=== PATIENT | male | born 1940 | race Caucasian/White ===

== ENCOUNTER 2017-06-01 10:48 | Outpatient (CLI) | payer MEDICARE, BC ==
[~2017-06-01] VITALS: Ht 170.2 cm; Wt 76.4 kg
--- NOTE | ~2017-06-01 | HEMODYNAMI ---
PATIENT:NORRIS GARCIA MEDICAL RECORD: [id number] : 44 LOCATION:[facility] ADMISSION DATE: 06/01/17 Generatedon:06/01/201713:38 Patient name: NORRIS GARCIA Patient #: [id number] SSN: DO B: 1940 Date of study: 06/01/2017 Page: Of Hemodynamic Procedure Report Patient Data Patient Demographics Procedure consent was obtained First Name: NORRIS Gender: Male Last Name: RADHA : 1940 Middle Initial: NOLA Age: 76 year(s) Patient #: [id number] Race: Unknown Additional ID: [id number] Contact details [address]: [address] [place] [address] State: [place] City: [place] Zip code: [address] Past Medical History Allergies Allergen Reaction Date Comments Reported Other allergy 06/01/2017 LISINOPRIL, PCN, WARFARIN Admission Admission Data Admission Date: 06/01/2017 Admission Time: 10:48 Height (in.): 5.7 BSA: 0.31 (m2) Height (cm.): 14.48 BMI: 3635.45 (kg/m2) Weight (lbs.): 168 Weight (kg.): 76.2 Lab Results Lab Result Date: 06/01/2017 Lab Result Time: 0:00 Biochemistry Name Units Result Min Max BUN mg/dl 25 --(----)-* 7 18 Creatinine mg/dl 1.6 --(----)-* 0.6 1.3 CBC Name Units Result Min Max Hemoglobin g/dl 16.6 --(---*)-- 13.5 17.5 Procedure Procedure Types Cath Procedure Diagnostic Procedure LHC LHC w/Coronaries w/Grafts Procedure Description Procedure Date Procedure Date: 06/01/2017 Procedure Start Time: 13:21 Procedure End Time: 13:37 Procedure Staff Name Function Johnny Herndon MD Performing Physician Lizet Vernon RT Monitor Bijal Thomason RT Scrub Buffie Mcwilliams RN Nurse Procedure Data Cath Procedure Fluoroscopy Diagnostic fluoroscopy Total fluoroscopy Time: 2.1 time: 2.1 min min Diagnostic fluoroscopy Total fluoroscopy dose: 485 dose: 485 mGy mGy Contrast Material Contrast Material Type Amount (ml) Isovue 300 75 Entry Location Entry Primary Successful Side Size Upsize Upsize Entry Closure Succes sful Closure Location (Fr) 1 (Fr) 2 (Fr) Remarks Device Remarks Femoral Right 5 Fr Exoseal artery Estimated blood loss: 5 ml Diagnostic catheters Device Type Used For End Catheter Placement MULTIPACK JL 4.0 5Fr Procedure catheter MULTIPACK 3DRC 5Fr Procedure catheter MULTIPACK Pigtail 5 Fr Procedure catheter Procedure Complications No complications Procedure Medications Medication Administration Route Dosage Oxygen NC 2 l/min Lidocaine 2% added to field 20 Heparin Flush Bag added to field 2 bags (1000units/500ml NS) 0.9% NaCl I.V. 100 ml/hr Fentanyl I.V. 50 mcg Fentanyl I.V. 50 mcg Hemodynamics Rest BSA: 0.31 (m2) HGB: 16.6 (g/dl) O2 Consumption: Estimated: 36.58 (ml/min) O2 Con sumption indexed: Estimated:118 (ml/min/m) Heart Rate: 78 (bpm) Pressure Samples Time Site Value (mmHg) Purpose Heart Use Rate(bpm) 13:29 LV 107/30,33 Snapshot 79 13:29 AO 107/72(87) Pullback 79 13:29 LV 102/-6,26 Pullback 79 Gradients Valve Time Site 1 Site 2 Mean SEP/DFP Peak To Heart Use (mmHg) (sec/min) Peak Rate (mmHg) (bpm) Aortic 13:29 LV AO 0 19 0 79 102/-6,26 107/72(87) Calculations Valve P-P Mean Valve Index Valve Source Name Gradient Area Flow (cm2) Aortic 0 0 0 0 Snapshots Pre Cath Intra NCS Post Cath Vital Signs Time Heart Resp SPO2 etCO2 NIBP (mmHg) Rhythm Pain Sedation Rate (ipm) (%) (mmHg) Status Level (bpm) 13:16:46 79 23 98 17.3 124/85(109) NSR 0 (11) 10(A) , No pain 13:20:48 73 26 96 6.7 133/100(113) NSR 0 (11) 10(A) , No pain 13:24:54 81 18 95 18 122/91(108) NSR 0 (11) 10(A) , No pain 13:28:55 86 15 97 15 130/90(107) NSR 0 (11) 10(A) , No pain 13:32:57 76 16 99 9.8 147/95(108) NSR 0 (11) 10(A) , No pain 13:37:54 79 13 90 0 123/94(110) NSR 0 (11) 10(A) , No pain Medications Time Medication Route Dose Verified Delivered Reason Notes Effe ctiveness by by 13:18:25 Oxygen NC 2 Johnny Buffie used for l/min [facility]. Yordan Mcwilliams RN procedure MD 13:18:35 Lidocaine 2% added 20ml Johnny Johnny for local to vial [facility] anesthetic field MD KAUFMAN 13:18:54 Heparin Flush added 2 Johnny Johnny used for Bag to bags [facility] procedure (1000units/500ml field MD KAUFMAN NS) 13:19:03 0.9% NaCl I.V. 100 Johnny Buffie Per ml/hr [facility]. Yordan Mcwilliams RN physician 13:20:50 Fentanyl I.V. 50 Johnny Buffie for mcg [facility] Yordan Mcwilliams RN sedation 13:27:55 Fentanyl I.V. 50 Johnny Buffie for [facility] [place] Po[place] RN sedation Procedure Log Time Note 12:53:54 Bijal Thomason RT(R) sent for patient. Start room use. 12:53:55 Time tracking: Regular hours 12:53:59 Plan of Care:Hemodynamics will remain stable., Cardiac rhythm will remain stable., Comfort level will be maintained., Respiratory function will remain adequate., Patient/ family verbilizes understanding of procedure., Procedure tolerated without complication., Recovers from procedure without complications.. 12:54:01 Signed procedure consent form obtained from patient. 12:56:59 H&P Date Dictated: 05/23/2017 Within 30 days and on chart., H&P Addendum completed by physician on day of procedure. (MUST COMPLETE FOR ALL OUTPATIENTS). 12:57:21 Patient allergic to Other allergyLISINOPRIL, PCN, WARFARIN 12:58:21 Lab Result : Creatinine 1.6 mg/dl 12:58:21 Lab Result : BUN 25 mg/dl 12:58:21 Lab Result : Hemoglobin 16.6 g/dl 12:59:47 Patient Height : 5.7 inches 12:59:50 Patient Weight : 168 lbs 13:03:28 Patient received from Pre/Post Procedure Room to CCL 2 Alert and oriented. Tansferred to table in Supine position. 13:03:29 Warm blankets applied, and dawson hugger turned on for patient comfort. 13:03:29 Correct patient and procedure confirmed by team. 13:03:32 ECG and BP/O2 sat monitors applied to patient. 13:15:43 Vital chart was started 13:15:45 Baseline sample Acquired. 13:15:56 Rhythm: sinus rhythm 13:15:58 Full Disclosure recording started 13:16:05 H&P Date Dictated: 05/23/2017 Within 30 days and on chart., H&P Addendum completed by physician on day of procedure. (MUST COMPLETE FOR ALL OUTPATIENTS). 13:16:06 Pre-procedure instructions explained to patient. 13:16:06 Pre-op teaching completed and patient verbalized understanding. 13:16:08 Family in patients room. 13:16:09 Patient NPO since Midnight. 13:16:13 Is the patient allergic to Iodine/contrast media? No. 13:16:18 Is patient on blood thinner?No 13:16:21 Patient diabetic? Yes. 13:16:22 If diabetic: On Metformin? Yes 13:16:24 If on Metformin: Last Dose? 05/30/2017 13:16:28 Previous problem with sedation/anesthesia? No ? 13:16:29 Snore? Yes 13:16:30 Sleep apnea? No 13:16:31 Deviated septum? No 13:16:32 Opens mouth fully? Yes 13:16:33 Sticks out tongue? Yes 13:16:37 Airway obstruction? No ? 13:16:57 RECENT PNEMONIA & BAD COUGH 13:17:01 Dentures? No ? 13:17:04 Pre procedure: right dorsailis pedis pulse 2+ Normal; easily identifiable; not easily obliterated 13:17:09 Patient pain scale 0/10 ?. 13:17:14 IV patent on arrival in right antecubital with 0.9% NaCl at O. 13:17:19 Lab results completed and on chart. 13:17:21 Right groin area was prepped with chlora-prep and draped in sterile fashion 13:17:22 Alarms reviewed by R. N. 13:17:22 Sharps counted by scrub and verified by R.N. 13:17:32 Use device set Femoral Dx 13:17:33 ACIST Syringe (45814) opened to sterile field. 13:17:35 Bag Decanter (2002S) opened to sterile field. 13:17:36 ACIST Hand Control (58305) opened to sterile field. 13:17:37 ACIST Manifold (68747) opened to sterile field. 13:17:38 Tegaderm 4 x 4 (1626W) opened to sterile field. 13:17:40 Medline Cath Pack ([id number]) opened to sterile field. 13:17:41 SHEATH 5FR [place] (RBA762) opened to sterile field. 13:17:42 DIAGNOSTIC WIRE .035 260cm J wire (298989) opened to sterile field. 13:17:43 DIAGNOSTIC Multipack 5Fr catheter set (JR1403) opened to sterile field. 13:17:43 PERCUTANEOUS ENTRY 19GA needle opened to sterile field. 13:18:25 Oxygen 2 l/min NC was administered by Sukhjinder Mcwilliams RN; used for procedure; 13:18:32 --------ALL STOP TIME OUT------ 13:18:32 Final Timeout: patient, procedure, and site verified with staff and physician. All members of the team are in agreement. 13:18:34 Right groin site verified by team. 13:18:35 Lidocaine 2% 20ml vial added to field was administered by Johnny Herndon MD; for local anesthetic; 13:18:37 Physical assessment completed. ASA score P 2 - A patient with mild systemic disease as per Johnny Herndon MD. 13:18:40 Sedation plan: IV Moderate Sedation Medication:Versed, Fentanyl 13:18:54 Heparin Flush Bag (1000units/500ml NS) 2 bags added to field was administered by Johnny Herndon MD; used for procedure; 13:19:03 0.9% NaCl 100 ml/hr I.V. was administered by Sukhjinder Mcwilliams RN; Per physician; 13:20:50 Fentanyl 50 mcg I.V. was administered by Sukhjinder Mcwilliams RN; for sedation; 13:21:53 Procedure started. 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 13:23:44 Zero performed for pressure channel P1 13:23:54 A 5 Fr sheath was inserted into the Right Femoral artery 13:24:05 A MULTIPACK JL 4.0 5Fr catheter was advanced over the wire and used for Procedure. 13:24:33 LCA angiography performed. 13:25:17 Catheter removed. 13:25:44 A MULTIPACK 3DRC 5Fr catheter was advanced over the wire and used for Procedure. 13:26:24 RCA angiography performed. 13:27:06 SVG to RCA angiography performed. 13:27:42 RG to LAD angiography performed. 13:27:55 Fentanyl 50 mcg I.V. was administered by Sukhjinder Mcwilliams RN; for sedation; 13:28:13 Catheter removed. 13:28:28 A MULTIPACK Pigtail 5 Fr catheter was advanced over the wire and used for Procedure. 13:28:49 Injector settings: Ml/sec: 10, Volume: 20, 13:28:52 LV hemodynamics recorded. 13:28:53 LV gram done using GUDINO 13:29:34 EF : 15 % 13:29:36 Catheter removed. 13:31:14 EXOSEAL 5Fr (EX500) opened to sterile field. 13:32:13 Sheath removed intact; hemostasis achieved with Exoseal to the Right Femoral artery. 13:32:31 Procedure ended.(Physican Out) 13:33:36 Fluoroscopy time 02.10 minutes. 13:33:39 Fluoroscopy dose: 485 mGy 13:33:39 Flurop Dose total: 485 13:33:58 Contrast amount:Isovue 300 75ml. 13:34:00 Sharps counted by scrub and verified by R.N. 13:34:09 Insertion/operative site no bleeding no hematoma. 13:34:13 Post-op/insertion site Right Femoral artery dressed using a 4 x 4 and Tegaderm. 13:34:16 Post right femoral artery:stable, soft, clean and dry 13:34:32 Post procedure: right dorsailis pedis pulse 2+ Normal; easily identifiable; not easily obliterated. 13:34:34 Post-procedure physical assessment completed. ASA score P 2 - A patient with mild systemic disease as per Johnny Herndon MD. 13:34:43 Post procedure rhythm: unchanged. 13:34:46 Estimated blood loss: 5 ml 13:34:47 Post procedure instruction explained to patient.Patient verbalizes understanding. 13:34:47 Patient needs reinforcement of post procedure teaching. 13:34:56 Procedure type changed to Cath procedure, Diagnostic procedure, LHC, LHC w/Coronaries w/Grafts 13:37:43 Procedure and supply charges have been captured, reviewed, submitted and are correct. 13:37:46 Procedure Complication : No complications 13:37:48 Vital chart was stopped 13:37:49 See physician's report for complete and final results. 13:37:53 Report given to Pre/Post Procedure Room. 13:37:56 Patient transfered to Pre/Post Procedure Room with Bed. 13:37:57 Procedure ended. 13:37:57 Full Disclosure recording stopped 13:38:00 End room use (Document Last) Device Usage Item Name Manufacture Quantity Catalog Hospital Part Current Minimal Lot# / Number Charge Number Stock Stock Serial# Code ACIST Acist 1 66861 523927 498483 981659 20 Syringe Medical (56544) Systems Inc Bag Decanter Microtek 1 2001S 439424 52443 134144 5 (2001S) Medical Inc. ACIST Hand Acist 1 37918 824917 759162 545238 5 Control Medical (89465) Systems Inc ACIST Acist 1 84958 397844 553396 092173 5 Manifold Medical (22634) Systems Inc Tegaderm 4 x 3M 1 1626W 660428 916810 380595 5 4 (1626W) Medline Cath Cardinal 1 [id number] 891744 69886 833211 5 Pack Health ([id number]) SHEATH 5FR Terumo 1 UXD302 315249 145755 783266 40 [place] (QHJ374) DIAGNOSTIC St Tian 1 257677 608713 396898 242035 30 WIRE .035 260cm J wire (446823) DIAGNOSTIC Cardinal 1 NJ3995 856528 64786 096124 30 Multipack Health 5Fr catheter set (QM7422) PERCUTANEOUS [facility] 1 J07054 022211 120215 5 ENTRY 19GA needle MULTIPACK JL Cardinal 1 433625 5 4.0 5Fr Health catheter MULTIPACK Cardinal 1 000579 5 3DRC 5Fr Health catheter MULTIPACK Cardinal 1 895522 5 Pigtail 5 Fr Health catheter EXOSEAL 5Fr Cardinal 1 EX500 374705 434020 397124 10 (EX500) Health Signature Audit [place] Stage Time Signature Unsigned Intra-Procedure 06/01/2017 Lizet Vernon 1:38:55 PM RT(R) Signatures Monitor : Lizet Vernon Signature : RT Date : Time : [address] [address]
--- NOTE | ~2017-06-01 | OP ---
PATIENT NAME: NORRIS GARCIA MEDICAL RECORD: [id number] :44 LOCATION:D.CAT ADMISSION DATE: SURGEON: SUNNY RESENDEZ MD DATE OF OPERATION: 06/01/2017 PROCEDURE: Left heart catheterization, selective coronary angiography, right femoral artery approach. CATHETERS: A 5-Danish sheath, 5/4 left and right Elliott, 5/4 pig. The procedure was well tolerated and the patient was returned to proctor, sheath removed. ExoSeal device placed. FINDINGS: Left ventriculography in 30-degree GUDNIO view shows severe global hypokinesis, reduced EF. Estimated EF 15 to 20%. CORONARY ANATOMY LEFT MAIN: Left main tapers about an 80% stenosis. LAD: Totally occluded. CIRCUMFLEX: Free of disease. RIGHT CORONARY ARTERY: Totally occluded proximally. BYPASS GRAFTS: 1. RG to the LAD is widely patent throughout its course. 2. Saphenous vein graft to the right is widely patent throughout its course. IMPRESSION: Severe cardiomyopathy. Efforts to improve left ventricular systolic function including ARB, beta-colin, and aldosterone inhibition will be considered. TRANSINT:[id number] Voice Confirmation ID: [id number] DOCUMENT ID: [id number] SUNNY RESENDEZ MD at 1142 CC: [id number] DICTATION DATE: 06/01/17 1337 SOUND TECHNICIAN SUPERVISOR: 06/01/17 1510 DEP CLI 06/01/17 [facility] [address] [place] [address]
[2017-06-01] MEDS ORDERED: GLUCOPHAGE500 MG PO (11:10)
[2017-06-01] MEDS ORDERED: LIPITOR20 MG PO (11:11)
[2017-06-01] MEDS ORDERED: XYZAL5 MG PO (11:11)
[2017-06-01] MEDS ORDERED: CELEXA10 MG PO (11:11)
[2017-06-01] MEDS ORDERED: ACTOS45 MG PO (11:11)
[2017-06-01] MEDS ORDERED: LASIX40 MG PO (11:12)
[2017-06-01] MEDS ORDERED: LEVOXYL75 MCG PO (11:12)
[2017-06-01] MEDS ORDERED: VITAMIN B-121000 MCG PO (11:13)
[2017-06-01] MEDS ORDERED: CRANBERRY 400 M1 TA1 PO (11:13)
[2017-06-01] MEDS ORDERED: CATAPRES0.1 MG PO (11:14)
[2017-06-01] MEDS ORDERED: BAYER CHEWABLE81 MG PO (11:14)
[2017-06-01 11:23] VITALS: BP 129/78; Ht 170.2 cm; Wt 76.4 kg
[2017-06-01 11:49] LABS: BASOPHILS 0.3 % (0-2); HEMATOCRIT 50.9 % (42.0-54.0); HEMOGLOBIN 16.6 g/dL (13.5-17.5); IMMATURE GRANULOCYTES 0.3 % (0-5); LYMPHOCYTES 13.9 % (15-50); MCH 32.2 pg (26.0-34.0); MCHC 32.6 g/dL (31.0-37.0); MCV 98.6 fL (80.0-100.0); MEAN PLATELET VOLUME 10.9 fL (7.4-10.4); MONOCYTES 6.6 % (2-11); NEUTROPHILS 77.9 % (40-80); RBC 5.16 10x6/uL (4.20-6.10); RDW 15.2 % (11.5-14.5); WBC 6.1 10x3/uL (4.8-10.8)
[2017-06-01 11:53] LABS: ANION GAP 15.6 mmol/L (8-16); CALCIUM 9.4 mg/dL (8.5-10.1); CARBON DIOXIDE 24.2 mmol/L (21.0-32.0); CREATININE - SERUM 1.6 mg/dL (0.6-1.3); POTASSIUM - SERUM 3.8 mmol/L (3.5-5.1)
[2017-06-01 11:54] LABS: PLATELET COUNT 142 10x3/uL (130-400)
[2017-06-01] MEDS ORDERED: COZAAR50 MG PO (14:29)
[2017-06-01] MEDS ORDERED: ALDACTONE25 MG PO (14:30)
== END 2017-06-01 16:40 | disposition home or self-care (01) ==
LOC: D.CATH 10:48
PROVIDERS: Internal Medicine Interventional Cardiology
DX: I25.10 Atherosclerotic heart disease of native coronary artery without angina pectoris (principal); I10 Essential (primary) hypertension; I42.9 Cardiomyopathy, unspecified; E78.5 Hyperlipidemia, unspecified; Z01.812 Encounter for preprocedural laboratory examination

== ENCOUNTER 2017-07-19 15:50 | Inpatient (IN) | payer MEDICARE ==
[~2017-07-19] VITALS: Ht 170.2 cm; Wt 71.1 kg
--- NOTE | ~2017-07-19 | EC ---
PATIENT:NORRIS GARCIA DATE OF SERVICE: 07/20/17 SEX: M MEDICAL RECORD: [id number] DATE OF : 44 LOCATION:D.M2 D.211 AGE OF PATIENT: 76 ADMISSION DATE: 07/20/17 REFERRING PHYSICIAN: INTERPRETING PHYSICIAN: SHELLY GRIFFITH MD ECHOCARDIOGRAM REPORT ECHO CHARGES 4 ECHO COMPLETE Date: 07/20 CLINICAL DIAGNOSIS: CHF HX OF CAD/CABG/CVA ECHOCARDIOGRAPHIC MEASUREMENTS (adult normal given) AC root (d.<3.7cm) 3.3 cm LV Septum d (<1.2 cm> 0.9 cm Valve Excursion 1.6 cm LV Septum (systole) 1.1 cm Left Atria (s.<4.0cm> 5.5 cm LVPW d(<1.2cm) 1.4 cm RV (d.<2.3cm) 5.1 cm LVPW (sytole) 1.5 cm LV diastole(<5.6CM) 5.8 cm MV E-F(>70mm/sec) cm LV systole 4.9 cm LVOT Diameter 1.5 cm MV exc.(>10mm) 1.8 cm Est.ejection fraction (50-75%) % DOPPLER: LVIT cm/sec A cm/sec E cm/sec LA cm/sec RVSP 29 mmHg LVOT 79 cm/sec AOP1/2T 480 m/s Asc. Ao 103 cm/sec RVOT 51 cm/sec RA cm/sec PA 73 cm/sec AV Gradient Peak 4.20 mmHg AV Mean 2.67 mmHg AV Area 1.3 cm MV Gradient Peak 3.68 mmHg MV Mean 1.16 mmHg MV Area cm COMMENTS: Solutions Market Consultant: Tiffanie GOOD Grit Removal Operator: 3 Dr. Herndon TAPE# PACS Pericardial Effusion N DATE OF SERVICE: PROCEDURE: Echocardiogram. FINDINGS: 1. Left ventricle chamber size is mildly dilated. Left ventricular systolic function is markedly reduced, overall ejection fraction 20%. 2. Left atrium is enlarged at 5.5 cm. Right atrium and right ventricle chamber sizes are as well moderately dilated. 3. Valvular structures have normal structure and motion. ECHOCARDIOGRAM REPORT [id number] NORRIS GARCIA 4. Doppler interrogation reveals mild aortic insufficiency, mild mitral regurgitation, mild tricuspid regurgitation, no other valvular insufficiency or stenosis. Pulmonary systolic pressure is estimated at 29 mmHg. 5. No evidence of pericardial effusion or left ventricular thrombus. TRANSINT:[id number] Voice Confirmation ID: [id number] DOCUMENT ID: [id number] SHELLY GRIFFITH MD at 0956 CC: [id number] DICTATION DATE: 07/21/17 1313 BIZTALK CONSULTANT: 07/21/17 1335 DIS IN 07/26/17 [place] [id number] [place] [id number]
--- NOTE | ~2017-07-19 | CN ---
PATIENT NAME:NORRIS GARCIA MEDICAL RECORD: [id number] : 44 LOCATION:ELLI.2304 ADMIT DATE: 07/20/17 ACCOUNT: [id number] CONSULTING PHYSICIAN: SHELLY GRIFFITH MD REFERRING PHYSICIAN: TITO JACQUES MD DATE OF CONSULTATION: 07/20/2017 Cardiology Consultation DIAGNOSES: 1. Dilated cardiomyopathy. 2. Congestive heart failure, chronic systolic dysfunction. HISTORY OF PRESENT ILLNESS: This is a gentleman well known to us who recently underwent cardiac catheterization revealing no significant coronary artery disease, but an ejection fraction in the 15% range. He now presents with shortness of breath. REVIEW OF SYSTEMS: The patient reports easy bruising but reports no swollen glands. The patient reports no fever, no night sweats, no significant weight gain, no significant weight loss. No significant exercise tolerance. The patient reports no dry eyes, no irritation, no vision change. Patient reports no difficulty hearing and no ear pain. Patient reports no frequent nose bleeds or nose and sinus problems. Patient reports on arm pain on exertion. No shortness of breath while lying down. No history of heart murmur. Patient reports no cough, no wheezing or coughing up blood. Patient reports no abdominal pain, no vomiting. Normal appetite. No diarrhea and not vomiting blood. No nausea and no constipation. Patient reports no incontinence. No difficulty urinating. No hematuria. No increased frequency. Patient reports no muscle aches. No weakness, no arthralgias, no back pain. No swelling of the extremities. Patient reports no abnormal mole, no jaundice, no rashes. Reports no loss of consciousness. No weakness and no numbness. No seizures, dizziness, or headaches. The patient reports no depression, no sleep disturbance, feeling safe in a relationship and no alcohol abuse. Patient reports on fatigue. Reports no runny nose or sinus pressure. No itching, no hives, and no frequent sneezing. PHYSICAL EXAMINATION: GENERAL APPEARANCE: Well-nourished, well-developed, appears stated age. Level of distress, comfortable. PSYCHIATRIC: Mental status, alert, normal affect. Orientation, oriented to time, place and person. EYES: Lids and conjunctiva, noninjected. No discharge, no pallor. ENT: Lips, teeth, gums, normal dentition. Oropharynx, no cyanosis, no pallor. NECK: Carotid arteries, bilateral normal upstroke, no bruits, no thrills. JUGULAR VEINS: No jugular venous pressure or distention. CERVICAL LYMPH NODES: Nontender, nonenlarged. THYROID: Not enlarged. Nontender. No nodules. LUNGS: Respiratory effort, unlabored. CHEST: Normal curvature. No thoracic deformity. No chest wall tenderness. Percussion, resonant. Auscultation, clear. No wheezes, no rales, no rhonchi. CARDIOVASCULAR: Precordial exam, nondisplaced. No heaves or pericardial thrills. Rate and rhythm, regular. Heart sounds, normal S1, normal S2. No S3, no gallop, no rub. Systolic murmur, not heard. Diastolic murmur, not heard. EXTREMITIES: No cyanosis, no edema. Peripheral pulses, full and equal in all CONSULT REPORT [id number] NORRIS GARCIA extremities, except as noted. No bruits appreciated. ABDOMEN: Soft, nondistended. Normal aorta. No bruit. Nontender. No masses. Liver, nontender, no hepatomegaly. Spleen, nontender, no splenomegaly. MUSCULOSKELETAL: No joint tenderness. No joint swelling. No erythema. NEUROLOGICAL: Normal gait, normal strength, normal tone. SKIN: Warm and dry. OVERALL IMPRESSION: Congestive heart failure, chronic systolic dysfunction. At this time, we will start him on IV dobutamine as well as Bumex. We will change his metoprolol to Coreg and if his blood pressure tolerates we will try Entresto. TRANSINT:[id number] Voice Confirmation ID: [id number] DOCUMENT ID: [id number] SHELLY GRIFFITH MD at 1057 CC: [id number] DICTATION DATE: 07/20/17 1355 ACID ETCH OPERATOR: 07/20/17 1408 ADM IN [facility] [address] [place] [address]
[~2017-07-19 15:50] MED LIST: ACTOS45 MG PO; ALDACTONE25 MG PO; BAYER CHEWABLE81 MG PO; CATAPRES0.1 MG PO; CELEXA10 MG PO; COZAAR50 MG PO; CRANBERRY 400 M1 TA1 PO; GLUCOPHAGE500 MG PO; LASIX40 MG PO; LEVOXYL75 MCG PO; LIPITOR20 MG PO; VITAMIN B-121000 MCG PO; XYZAL5 MG PO
[2017-07-19 17:23] LABS: APPEARANCE CLEAR (CLEAR); BILIRUBIN NEGATIVE (NEGATIVE); COLOR YELLOW (YELLOW); GLUCOSE NEGATIVE (NEGATIVE); KETONE NEGATIVE (NEGATIVE); NITRITE NEGATIVE (NEGATIVE); PROTEIN TRACE mg/dL (NEGATIVE); SPECIFIC GRAVITY 1.015 (1.005-1.020); UROBILINOGEN NORMAL (NORMAL)
[2017-07-19 17:53] LABS: BASOPHILS 0.2 % (0-2); EOSINOPHILS 0.6 % (0-7); HEMATOCRIT 53.1 % (42.0-54.0); HEMOGLOBIN 17.3 g/dL (13.5-17.5); IMMATURE GRANULOCYTES 0.2 % (0-5); LYMPHOCYTES 9.5 % (15-50); MCH 31.2 pg (26.0-34.0); MCHC 32.6 g/dL (31.0-37.0); MCV 95.7 fL (80.0-100.0); MEAN PLATELET VOLUME 12.1 fL (7.4-10.4); MONOCYTES 10.4 % (2-11); NEUTROPHILS 79.1 % (40-80); RBC 5.55 10x6/uL (4.20-6.10); RDW 17.1 % (11.5-14.5); WBC 6.5 10x3/uL (4.8-10.8)
[2017-07-19 17:55] LABS: PLATELET COUNT 179 10x3/uL (130-400)
[2017-07-19 18:33] LABS: UDS - AMPHET NEGATIVE QUAL (NEGATIVE); UDS - BARB NEGATIVE QUAL (NEGATIVE); UDS - BENZO NEGATIVE QUAL (NEGATIVE); UDS - COCAINE NEGATIVE QUAL (NEGATIVE); UDS - OPIATE NEGATIVE QUAL (NEGATIVE); UDS - PCP NEGATIVE QUAL (NEGATIVE); UDS - THC NEGATIVE QUAL (NEGATIVE)
[2017-07-19 20:30] LABS: ALBUMIN 4.1 g/dL (3.4-5.0); ANION GAP 22.3 mmol/L (8-16); BILIRUBIN - TOTAL 2.17 mg/dL (0.2-1.3); CALCIUM 9.7 mg/dL (8.5-10.1); CARBON DIOXIDE 20.1 mmol/L (21.0-32.0); CREATININE - SERUM 1.6 mg/dL (0.6-1.3); POTASSIUM - SERUM 5.4 mmol/L (3.5-5.1); PROTEIN - SERUM 7.9 g/dL (6.4-8.2)
[2017-07-19 20:46] LABS: MAGNESIUM - SERUM 2.4 mg/dL (1.8-2.4)
[2017-07-19 20:47] LABS: TROPONIN-I 0.258 ng/mL (0.000-0.060)
[2017-07-20] VITALS (22 sets, daily range): BP systolic 100–155; BP diastolic 73–99; Ht 170.2 cm; Wt 71.1 kg
[2017-07-20 13:04] LABS: CKMB 1.7 U/L (0.0-3.6); CREATINE KINASE 28 UL (21-232)
[2017-07-20 13:05] LABS: TROPONIN-I 0.276 ng/mL (0.000-0.060)
[2017-07-20 18:52] LABS: CKMB 1.7 U/L (0.0-3.6); CREATINE KINASE 31 UL (21-232)
[2017-07-21] VITALS (25 sets, daily range): BP systolic 77–134; BP diastolic 53–93
[2017-07-21 00:35] LABS: CKMB 1.6 U/L (0.0-3.6); CREATINE KINASE 34 UL (21-232)
[2017-07-21 00:39] LABS: TROPONIN-I 0.266 ng/mL (0.000-0.060)
[2017-07-21 03:41] LABS: BASOPHILS 0.2 % (0-2); EOSINOPHILS 0.9 % (0-7); HEMATOCRIT 46.7 % (42.0-54.0); HEMOGLOBIN 15.4 g/dL (13.5-17.5); IMMATURE GRANULOCYTES 0.3 % (0-5); LYMPHOCYTES 3.1 % (15-50); MCH 31.5 pg (26.0-34.0); MCV 95.5 fL (80.0-100.0); MEAN PLATELET VOLUME 10.3 fL (7.4-10.4); MONOCYTES 8.1 % (2-11); NEUTROPHILS 87.4 % (40-80); PLATELET COUNT 160 10x3/uL (130-400); RBC 4.89 10x6/uL (4.20-6.10); RDW 16.7 % (11.5-14.5)
[2017-07-21 03:44] LABS: WBC 11.1 10x3/uL (4.8-10.8)
[2017-07-21 04:13] LABS: ANION GAP 18.5 mmol/L (8-16); CALCIUM 8.5 mg/dL (8.5-10.1); CARBON DIOXIDE 21.6 mmol/L (21.0-32.0); CREATININE - SERUM 1.4 mg/dL (0.6-1.3); POTASSIUM - SERUM 4.1 mmol/L (3.5-5.1)
[2017-07-22] VITALS (19 sets, daily range): BP systolic 97–129; BP diastolic 65–97
[2017-07-22 04:07] LABS: BASOPHILS 0.1 % (0-2); EOSINOPHILS 1.4 % (0-7); HEMATOCRIT 42.6 % (42.0-54.0); HEMOGLOBIN 14.3 g/dL (13.5-17.5); IMMATURE GRANULOCYTES 0.1 % (0-5); MCH 31.6 pg (26.0-34.0); MCHC 33.6 g/dL (31.0-37.0); MCV 94.2 fL (80.0-100.0); MEAN PLATELET VOLUME 10.7 fL (7.4-10.4); MONOCYTES 10.1 % (2-11); NEUTROPHILS 84.3 % (40-80); PLATELET COUNT 166 10x3/uL (130-400); RBC 4.52 10x6/uL (4.20-6.10); RDW 16.5 % (11.5-14.5)
[2017-07-22 04:16] LABS: WBC 7.2 10x3/uL (4.8-10.8)
[2017-07-22 04:18] LABS: INR 1.44 (0.85-1.17)
[2017-07-22 04:27] LABS: ALBUMIN 3.3 g/dL (3.4-5.0); BILIRUBIN - TOTAL 3.33 mg/dL (0.2-1.3); CALCIUM 8.3 mg/dL (8.5-10.1); CARBON DIOXIDE 24.7 mmol/L (21.0-32.0); CREATININE - SERUM 1.3 mg/dL (0.6-1.3); POTASSIUM - SERUM 3.7 mmol/L (3.5-5.1); PRE-ALBUMIN 13.7 mg/dL (18.0-35.7); PROTEIN - SERUM 6.7 g/dL (6.4-8.2)
[2017-07-23 03:00] VITALS: BP 116/88
[2017-07-23 05:34] LABS: BASOPHILS 0.2 % (0-2); HEMATOCRIT 46.8 % (42.0-54.0); HEMOGLOBIN 15.6 g/dL (13.5-17.5); IMMATURE GRANULOCYTES 0.2 % (0-5); LYMPHOCYTES 7.5 % (15-50); MCH 31.5 pg (26.0-34.0); MCHC 33.3 g/dL (31.0-37.0); MCV 94.5 fL (80.0-100.0); MEAN PLATELET VOLUME 10.8 fL (7.4-10.4); MONOCYTES 12.2 % (2-11); NEUTROPHILS 78.9 % (40-80); PLATELET COUNT 170 10x3/uL (130-400); RBC 4.95 10x6/uL (4.20-6.10); RDW 16.5 % (11.5-14.5); WBC 6.2 10x3/uL (4.8-10.8)
[2017-07-23 05:45] LABS: ANION GAP 15.9 mmol/L (8-16); CALCIUM 8.7 mg/dL (8.5-10.1); CREATININE - SERUM 1.3 mg/dL (0.6-1.3); POTASSIUM - SERUM 3.9 mmol/L (3.5-5.1)
[2017-07-23 05:47] LABS: BILIRUBIN - DIRECT 1.06 mg/dL (0.00-0.30); BILIRUBIN - TOTAL 2.48 mg/dL (0.2-1.3)
[2017-07-23 07:00] VITALS: BP 123/83
[2017-07-23 11:00] VITALS: BP 118/78
[2017-07-23 15:00] VITALS: BP 96/85
[2017-07-23 19:00] VITALS: BP 95/80
[2017-07-23 23:00] VITALS: BP 115/87
[2017-07-24] VITALS (11 sets, daily range): BP systolic 91–118; BP diastolic 72–95
[2017-07-24 03:51] LABS: BASOPHILS 0.2 % (0-2); EOSINOPHILS 1.5 % (0-7); HEMATOCRIT 46.6 % (42.0-54.0); HEMOGLOBIN 15.5 g/dL (13.5-17.5); IMMATURE GRANULOCYTES 0.2 % (0-5); LYMPHOCYTES 11.9 % (15-50); MCH 31.6 pg (26.0-34.0); MCHC 33.3 g/dL (31.0-37.0); MCV 94.9 fL (80.0-100.0); MEAN PLATELET VOLUME 10.7 fL (7.4-10.4); MONOCYTES 11.9 % (2-11); NEUTROPHILS 74.3 % (40-80); PLATELET COUNT 168 10x3/uL (130-400); RBC 4.91 10x6/uL (4.20-6.10); RDW 16.4 % (11.5-14.5); WBC 5.5 10x3/uL (4.8-10.8)
[2017-07-24 04:00] LABS: ANION GAP 17.7 mmol/L (8-16); CALCIUM 8.7 mg/dL (8.5-10.1); CARBON DIOXIDE 23.2 mmol/L (21.0-32.0); CREATININE - SERUM 1.5 mg/dL (0.6-1.3); POTASSIUM - SERUM 3.9 mmol/L (3.5-5.1)
[2017-07-25] VITALS: BP 114/76
[2017-07-25 04:00] VITALS: BP 113/75
[2017-07-25 05:18] LABS: BASOPHILS 0.4 % (0-2); EOSINOPHILS 1.8 % (0-7); HEMATOCRIT 48.2 % (42.0-54.0); HEMOGLOBIN 16.2 g/dL (13.5-17.5); IMMATURE GRANULOCYTES 0.2 % (0-5); LYMPHOCYTES 15.9 % (15-50); MCH 31.8 pg (26.0-34.0); MCHC 33.6 g/dL (31.0-37.0); MCV 94.5 fL (80.0-100.0); MEAN PLATELET VOLUME 11.3 fL (7.4-10.4); MONOCYTES 13.5 % (2-11); NEUTROPHILS 68.2 % (40-80); PLATELET COUNT 167 10x3/uL (130-400); RDW 16.2 % (11.5-14.5); WBC 4.9 10x3/uL (4.8-10.8)
[2017-07-25 05:46] LABS: ANION GAP 15.1 mmol/L (8-16); BILIRUBIN - TOTAL 1.6 mg/dL (0.2-1.3); CREATININE - SERUM 1.6 mg/dL (0.6-1.3); PHOSPHOROUS 4.1 mg/dL (2.5-4.9); POTASSIUM - SERUM 4.1 mmol/L (3.5-5.1); PROTEIN - SERUM 6.6 g/dL (6.4-8.2)
[2017-07-25 08:21] VITALS: BP 118/79
[2017-07-25 13:51] VITALS: BP 120/76
[2017-07-25 17:01] VITALS: BP 129/78
[2017-07-25 20:00] VITALS: BP 112/79
[2017-07-26 04:00] VITALS: BP 105/62
[2017-07-26 10:15] VITALS: BP 113/76
[2017-07-26 12:31] VITALS: BP 113/77
[2017-07-26] MEDS ORDERED: BUMEX 1 MG TAB1 MG PO (14:55)
[2017-07-26] MEDS ORDERED: COREG 3.1253.125 MG PO (14:55)
== END 2017-07-26 17:22 | DRG 280 ==
LOC: D.ER 15:50 → D.ICU 07-20 00:44 → D.M2 07-20 00:44
PROVIDERS: Emergency Medicine; Internal Medicine Gastroenterology; Internal Medicine Nephrology; Physician Assistant
PROC: 0T9B70Z Drainage of Bladder with Drainage Device, Via Natural or Artificial Opening (ICD-10-PCS; principal; 2017-07-20)
DX: I11.0 Hypertensive heart disease with heart failure (principal); G93.40 Encephalopathy, unspecified; I21.4 Non-ST elevation (NSTEMI) myocardial infarction; J96.01 Acute respiratory failure with hypoxia; N17.9 Acute kidney failure, unspecified; I50.23 Acute on chronic systolic (congestive) heart failure; I42.9 Cardiomyopathy, unspecified; D75.1 Secondary polycythemia; R13.12 Dysphagia, oropharyngeal phase; R47.1 Dysarthria and anarthria; I95.9 Hypotension, unspecified; I25.10 Atherosclerotic heart disease of native coronary artery without angina pectoris; R13.10 Dysphagia, unspecified; R74.8 Abnormal levels of other serum enzymes; E80.6 Other disorders of bilirubin metabolism; Z86.73 Personal history of transient ischemic attack (TIA), and cerebral infarction without residual deficits